=== PATIENT | female | born 1970 | race Caucasian/White ===

== ENCOUNTER 2018-12-04 05:34 | Day surgery (SDC) | payer OTHER ==
[~2018-12-04 05:34] MED LIST: Buffered Lidocaine 1% SYRIN* 1 ML/SYRINGE INTRADERM ONE
[2018-12-04] MEDS ORDERED: Famotidine IV* 10 MG/ML 2 ML (20 mg) IV ONE (06:00)
[2018-12-04] MEDS ORDERED: Lactated Ringers 1000 ML Bag* 1,000 ML IV SCH (06:00)
[2018-12-04] MEDS ORDERED: Buffered Lidocaine 1% SYRIN* 1 ML/SYRINGE INTRADERM ONE (06:03)
[2018-12-04] MEDS ORDERED: Clindamycin 900 MG/D5W BAG(*) 900 MG/50 ML BAG IVPB ONE (06:03)
[2018-12-04] MEDS ORDERED: Famotidine IV* 10 MG/ML 2 ML (20 mg) ONE (06:03)
[2018-12-04] MEDS ORDERED: Bupivacaine 0.25% SDV PF* 10 ML VIAL INJ ONE (07:11)
[2018-12-04] MEDS ORDERED: Midazolam* 1 MG/ML 5 ML VIAL (5 MG) ONE (07:43)
[2018-12-04] MEDS ORDERED: fentaNYL* 50 MCG/ML 2 ML VIAL (100 MCG VIAL) ONE ×2 (08:03→08:31)
[2018-12-04] MEDS ORDERED: Ondansetron INJ* 2 MG/ML VIAL ONE (08:08)
[2018-12-04] MEDS ORDERED: Propofol* 10 MG/ML 20 ML BTL ONE (08:08)
[2018-12-04] MEDS ORDERED: Ketorolac INJ* 30 MG/ML 1 ML VIAL ONE (08:08)
[2018-12-04] MEDS ORDERED: Lidocaine 2% PF * 5 ML VIAL ONE (08:09)
[2018-12-04] MEDS ORDERED: Midazolam* 1 MG/ML 2 ML VIAL (2 MG) ONE (08:15)
[2018-12-04] MEDS ORDERED: DiMENhydriNATE IV* 50 MG/ML VIAL IV PUSH PRN (08:39)
[2018-12-04] MEDS ORDERED: Naloxone* 0.4 MG/ML 1 ML VIAL IV PRN (08:39)
[2018-12-04 09:56] VITALS: BP 144/98
--- NOTE | 2018-12-04 15:00 | OP ---
DATE OF OPERATION: 12/04/18 - FORMER[facility] DATE OF : 68 SURGEON: Bereket Crisostomo MD REPORT PROGRAMMER: MARTHA Luciano ANESTHESIOLOGIST: Dr. Pandey. ANESTHESIA: General. PRE-OP DIAGNOSES: 1. Right carpal tunnel syndrome. 2. 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 3. Right small finger deep soft tissue mass. POST-OP DIAGNOSES: 1. Right carpal tunnel syndrome. 2. 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 3. Right small finger deep soft tissue mass. OPERATIVE PROCEDURE: 1. Right endoscopic carpal tunnel release. 2. Right median nerve release in the proximal forearm. 3. Right small finger deep soft tissue mass excision. INDICATIONS: Marlyn has the aforementioned conditions. We talked about her treatment options. She had wanted to have the nerve releases done and the mass excised. She understands there are risks and benefits associated with it, including the risk of mass recurrence down in the finger. ESTIMATED BLOOD LOSS: 2 mL. COMPLICATIONS: None. FINDINGS: See above and below. DESCRIPTION OF PROCEDURE: Marlyn was seen in the preoperative holding area. The correct site, side, and procedure were identified. We came back to the operating room where the arm was prepped and draped in the usual fashion and a time-out was performed. The arm was exsanguinated with the Esmarch and the tourniquet was inflated to 250 mmHg. I began by making a 1 cm incision just ulnar to the palmaris longus tendon. Dissection was carried down through the antebrachial fascia. A skin hook was placed. The synovial stripper followed by the dilators were used. A Q -tip was used to dry out the carpal tunnel. The MicroAire endoscopic carpal tunnel system was then introduced into the carpal tunnel and the release was completed from distal to proximal with direct visualization on the monitor. Once I completed and confirmed the release through the carpal tunnel, I released the distal antebrachial fascia proximally with the tenotomy scissors. The wound was irrigated out and closed with 4-0 Prolene suture. I then made a 2 cm transverse incision in line with the skin lines just distal to the antebrachial fossa crease over the lacertus fibrosus. Dissection was carried down. Full-thickness flaps were raised off of the fascia. The lacertus fibrosus was identified and released with the tenotomy scissors. The release was completed distally and proximally with the tenotomy scissors. Care was taken not to injure the neurovascular structures. The wound was irrigated out and the skin was closed with 3-0 Monocryl suture. I then made an incision over the ulnar aspect of the right small finger in the mid axial line. This was brought back a little bit obliquely onto the fingertip and over towards the PIP joint flexion crease. Full-thickness flap was raised off the mass. 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 The margins of the mass were delineated. The neurovascular bundle was protected. I went ahead and excised the mass entirely. This was done via marginal excision. It was right down deep off the tendon sheath and periosteum. Once I had fully excised the mass, I irrigated out the wound, cauterized any vessels and got it looking nice and clean. The skin was closed with 4-0 nylon suture. Wounds were dressed with soft dressings and she was taken to the recovery room in stable condition. [id number]/[facility] #: [id number] [place]
== END 2018-12-04 10:10 | disposition home or self-care (01) ==
LOC: OR 05:34
PROVIDERS: ATTEND Orthopaedic Surgery Hand Surgery
DX: G56.01 Carpal tunnel syndrome, right upper limb (principal); G56.11 Other lesions of median nerve, right upper limb; R22.31 Localized swelling, mass and lump, right upper limb; E03.9 Hypothyroidism, unspecified; K21.9 Gastro-esophageal reflux disease without esophagitis; Z87.891 Personal history of nicotine dependence; Z88.0 Allergy status to penicillin; Z88.8 Allergy status to other drugs, medicaments and biological substances
CPT/HCPCS: 88305; J1885; J2250; J2405; J2704; J3010; J3490